=== PATIENT | female | born 1955 | race Hispanic/Latino ===

== ENCOUNTER → 2018-04-11 | Outpatient (CLI) | payer OTHER | END | disposition home or self-care (01) | LOC: SHCH 13:25 | PROVIDERS: ATTEND Internal Medicine Cardiovascular Disease | DX: I87.2 Venous insufficiency (chronic) (peripheral) (principal); I73.9 Peripheral vascular disease, unspecified | CPT/HCPCS: 93925; 93970 ==

== ENCOUNTER → 2018-07-23 | Outpatient (CLI) | payer OTHER | END | disposition home or self-care (01) | LOC: SHCH 13:11 | PROVIDERS: ATTEND Internal Medicine Cardiovascular Disease | DX: Z09 Encounter for follow-up examination after completed treatment for conditions other than malignant neoplasm (principal) | CPT/HCPCS: 93971 ==

== ENCOUNTER 2018-09-07 18:03 | Emergency (ER) | payer OTHER ==
[2018-09-07] MEDS ORDERED: HYDROCODONE/ACETAMINOPHEN 10/325 MG TAB ONE (18:49)
== END 2018-09-07 19:46 | disposition home or self-care (01) ==
LOC: EDH 18:03
DX: S52.001A Unspecified fracture of upper end of right ulna, initial encounter for closed fracture (principal); S52.101A Unspecified fracture of upper end of right radius, initial encounter for closed fracture; E11.9 Type 2 diabetes mellitus without complications; I10 Essential (primary) hypertension; Z88.0 Allergy status to penicillin; Z90.710 Acquired absence of both cervix and uterus; Z90.49 Acquired absence of other specified parts of digestive tract; W18.09XA Striking against other object with subsequent fall, initial encounter; Y93.01 Activity, walking, marching and hiking; Y92.218 Other school as the place of occurrence of the external cause; Y99.8 Other external cause status
CPT/HCPCS: 29105; 73070

== ENCOUNTER 2018-09-13 21:47 | Emergency (ER) | payer OTHER ==
[2018-09-13] MEDS ORDERED: MORPHINE SULFATE 4 MG/1ML SYG ONE (22:37)
[2018-09-13] MEDS ORDERED: ONDANSETRON ODT 4 MG TAB ONE (22:38)
== END 2018-09-14 00:07 | disposition home or self-care (01) ==
LOC: EDH 21:47
DX: S52.091D Other fracture of upper end of right ulna, subsequent encounter for closed fracture with routine healing (principal); E11.9 Type 2 diabetes mellitus without complications; I10 Essential (primary) hypertension; Z79.4 Long term (current) use of insulin; Z88.0 Allergy status to penicillin; Z90.49 Acquired absence of other specified parts of digestive tract; Z90.710 Acquired absence of both cervix and uterus; W18.39XD Other fall on same level, subsequent encounter
CPT/HCPCS: 73070; 96372; 99284; J2270